=== PATIENT | male | born 1965 | race Caucasian/White ===

== ENCOUNTER 2017-03-31 08:50 | Emergency (ER) | payer OTHER ==
[2017-03-31] MEDS ORDERED: DEXAMETHASONE 10 MG/ML VIAL PO STA (09:27)
[2017-03-31] MEDS ORDERED: DEXAMETHASONE 10 MG/ML VIAL ONE (09:27)
--- NOTE | 2017-03-31 09:29 | ED Physician Documentation ---
PD HPI URI - Stated complaint Stated Complaint: FEVER/COUGH - Chief complaint Chief Complaint: Resp - History obtained from History obtained from: Patient - History of Present Illness Timing - onset: How many weeks ago (4) Timing duration: Weeks (4) Timing details: Gradual onset, Still present Associated symptoms: Ear pain, Nasal congestion, Rhinorrhea, Sore throat, Dry cough, Dyspnea Contributing factors: Sick contact ( sick with similar) Improves by: Rest, Medication Worsened by: Activity Similar symptoms before: Diagnosis (bronchitis) Recently seen: Not recently seen - Additional information Additional information: 51 y/o male with a cough for the past month has developed worsening symptom the past 3 days with coughing paroxysms causing near syncope and pain in the left ear as well as a sore throat. He has some shortness of breath and he finds all of his symptoms are worse at night. Review of Systems Constitutional: denies: Fever Eyes: denies: Decreased vision Ears: reports: Ear pain Nose: reports: Rhinorrhea / runny nose, Congestion Throat: reports: Sore throat Cardiac: denies: Chest pain / pressure, Palpitations Respiratory: reports: Dyspnea, Cough, Wheezing GI: denies: Abdominal Pain, Nausea, Vomiting : denies: Dysuria Skin: denies: Rash PD PAST MEDICAL HISTORY - Present Medications Home Medications: Ambulatory Orders Medication Instructions Recorded Confirmed Albuterol Sulf [Ventolin Hfa 1 - 2 puffs INH Q4HR PRN #1 inhaler 03/31/17 Inhaler] Azithromycin [Zithromax] 250 mg PO DAILY #6 tablet 03/31/17 Benzonatate [Tessalon] 100 - 200 mg PO TID PRN #20 capsule 03/31/17 Lovastatin 03/31/17 Olmesartan Medoxomil [Benicar] 03/31/17 metFORMIN [Glucophage] 03/31/17 - Allergies Allergies/Adverse Reactions: Allergies Allergy/AdvReac Type Severity Reaction Status Date / Time No Known Drug Allergies Allergy Verified 03/31/17 09:03 PD ED PE NORMAL - Vitals Vital signs reviewed: Yes (hypertensive) - HEENT HEENT: Atraumatic, PERRL, EOMI, Other (both TM's are inflamed along the umbo the left is worse than the right. ) - Neck Neck: Supple, no meningeal sign, No bony TTP - Cardiac Cardiac: RRR, No murmur - Respiratory Respiratory: No respiratory distress, Clear bilaterally - Abdomen Abdomen: Soft, Non tender - Back Back: No CVA TTP, No spinal TTP - Derm Derm: Normal color, Warm and dry, No rash - Extremities Extremities: No deformity, No edema - Neuro Neuro: Alert and oriented X 3, No motor deficit, No sensory deficit, Normal speech - Psych Psych: Normal mood, Normal affect Results - Vitals Vitals: Vital Signs - 24 hr 03/31/17 03/31/17 08:52 10:01 Temperature 36.3 C L Heart Rate 88 76 Respiratory 16 18 Rate Blood Pressure 170/105 H 156/103 H O2 Saturation 95 97 Oxygen O2 Source Room air - Labs Labs: Laboratory Tests 03/31/17 09:27 Group A Strep Rapid Negative PD MEDICAL DECISION MAKING - ED course Complexity details: reviewed results, re-evaluated patient, considered differential, d/w patient ED course: 51 y/o male with cough sore throat and ear pain has OM on exam and he does not appear hypoxic. He is given decadron here in the ED and we will prescribe zithromax and albuterol as well. Departure - Departure Disposition: Home, Self Care Clinical Impression: Bronchitis Otitis media Qualifiers: Otitis media type: suppurative Laterality: bilateral Chronicity: acute Recurrence: not specified as recurrent Spontaneous tympanic membrane rupture: without spontaneous rupture Qualified Code(s): H66.003 - Acute suppurative otitis media without spontaneous rupture of ear drum, bilateral Instructions: ED Bronchitis Asthmatic, ED Otitis Media Acute Adult Follow-Up: [facility] [Provider Group] Prescriptions: Albuterol Sulf [Ventolin Hfa Inhaler] 1 - 2 puffs INH Q4HR PRN #1 inhaler PRN Reason: Shortness Of Air/Wheezing Benzonatate [Tessalon] 100 - 200 mg PO TID PRN #20 capsule PRN Reason: Cough Azithromycin [Zithromax] 250 mg PO DAILY #6 tablet Discharge Date/Time: 03/31/17 10:01
[2017-03-31 09:46] LABS: RAPID STREP SCREEN REAGENT QC YELLOW (YELLOW)
[2017-03-31 10:01] VITALS: BP 156/103
== END 2017-03-31 10:01 | disposition home or self-care (01) ==
LOC: ED 08:50
DX: J40 Bronchitis, not specified as acute or chronic (principal); H66.003 Acute suppurative otitis media without spontaneous rupture of ear drum, bilateral
CPT/HCPCS: 87070; 87430; 99283; 99284

== ENCOUNTER 2018-01-14 08:00 | Outpatient (CLI) | payer OTHER ==
[2018-01-14 13:06] LABS: ALBUMIN 4.3 g/dL (3.2-5.5); ALBUMIN/GLOBULIN RATIO 1.3 (1.0-2.2); ALKALINE PHOSPHATASE 76 IU/L (42-121); ALT ALANINE AMINOTRANSFERASE 26 IU/L (10-60); AST ASPARTATE AMINOTRANSFERASE 20 IU/L (10-42); BILIRUBIN,TOTAL 0.8 mg/dL (0.2-1.0); BUN - BLOOD UREA NITROGEN 14 mg/dL (6-20); CALCIUM 9.5 mg/dL (8.5-10.3); CARBON DIOXIDE - CO2 28 mmol/L (21-32); CHLORIDE 100 mmol/L (101-111); CHOL/HDL RATIO 5.8 (<5.0); CHOLESTEROL 203 mg/dL; GFR - MDRD 78 (>89); GLUCOSE 153 mg/dL (70-100); HDL CHOLESTEROL 35 mg/dL; LDL CHOLESTEROL,CALCULATED 135 mg/dL; LDL/HDL RATIO 3.9 (<3.6); SODIUM 134 mmol/L (135-145); TOTAL PROTEIN 7.7 g/dL (6.7-8.2); VLDL CHOLESTEROL 33 mg/dL
[2018-01-14 13:08] LABS: THYROID STIMULATING HORMONE 2.3 uIU/mL (0.34-5.60)
[2018-01-14 13:19] LABS: HB2 TOTAL 19.2 g/dL; HEMOGLOBIN A1C 1.09 g/dL; HEMOGLOBIN A1C % 7.3 % (4.6-6.2)
== END 2018-01-14 08:01 ==
LOC: LAB.WCP 08:00
PROVIDERS: ATTEND Family Medicine
DX: E11.9 Type 2 diabetes mellitus without complications (principal)
CPT/HCPCS: 36415; 80053; 80061; 82607; 83036; 83721; 84443

== ENCOUNTER 2019-09-20 17:04 | Emergency (ER) | payer OTHER ==
[2019-09-20 17:32] LABS: BASOPHILS # (AUTO) 0.1 10^3/uL (0.0-0.1); BASOPHILS % (AUTO) 0.6 %; EOSINOPHILS # (AUTO) 0.1 10^3/uL (0.0-0.7); EOSINOPHILS % (AUTO) 0.8 %; HGB - HEMOGLOBIN 15.6 g/dL (14.0-18.0); LYMPHOCYTES # (AUTO) 1.4 10^3/uL (1.5-3.5); LYMPHOCYTES % (AUTO) 15.7 %; MEAN CORPUSCULAR HEMOGLOBIN 28.1 pg (27.0-31.0); MEAN CORPUSCULAR HGB CONC 33.3 g/dL (32.0-36.0); MEAN CORPUSCULAR VOLUME 84.5 fL (80.0-94.0); MEAN PLATELET VOLUME 9.8 fL (7.4-11.4); MONOCYTES # (AUTO) 0.7 10^3/uL (0.0-1.0); MONOCYTES % (AUTO) 8.2 %; NEUTROPHILS # (AUTO) 6.7 10^3/uL (1.5-6.6); NEUTROPHILS % (AUTO) 74.4 %; PLT - PLATELET COUNT 240 10^3/uL (130-450); RED BLOOD COUNT 5.55 10^6/uL (4.70-6.10); RED CELL DISTRIBUTION WIDTH 13.3 % (12.0-15.0)
[2019-09-20 17:34] LABS: BILIRUBIN,URINE NEGATIVE (NEGATIVE); GLUCOSE, URINE (UA) 500 mg/dL (NEGATIVE); KETONES,URINE (UA) NEGATIVE (NEGATIVE); LEUKOCYTE ESTERASE, URINE NEGATIVE (NEGATIVE); NITRITE,URINE NEGATIVE (NEGATIVE); OCCULT BLOOD,URINE NEGATIVE (NEGATIVE); PH,URINE 6.5 PH (5.0-7.5); PROTEIN,URINE NEGATIVE (NEGATIVE); UROBILINOGEN,URINE 0.2 (NORMAL) E.U./dL (NORMAL)
[2019-09-20] MEDS ORDERED: AMOX/CLAV 875 MG/125 MG TABLET PO STA (17:34)
[2019-09-20 17:35] LABS: CLARITY,URINE CLEAR (CLEAR)
--- NOTE | 2019-09-20 17:37 | ED Physician Documentation ---
PD HPI ABD PAIN - Stated complaint Stated Complaint: AB PX - Chief complaint Chief Complaint: Abd Pain - History obtained from History obtained from: Patient - History of Present Illness Timing - onset: How many days ago (2) Timing - duration: Days (2) Timing - details: Gradual onset Pain level max: 5 Pain level now: 3 Quality: Cramping, Aching Location: LLQ Radiation: No: Chest, , Lower back, Left flank, Left shoulder, Right flank, Right shoulder, Upper back Improved by: Other (rest) Worsened by: Other (movement, palpation) Associated symptoms: No: Fever, Nausea, Vomiting, Hematemesis, Diarrhea, Constipation, Melena, Hematochezia, Dysuria, Hematuria, Chest pain, Dizzy, Near syncope / syncope, Loss of appetite, Weight loss, Testicular pain Similar symptoms before: Diagnosis (Diverticulitis) - Additional information Additional information: 53-year-old male with left lower quadrant abdominal pain for 2 to 3 days. States feels similar to his past history of diverticulitis. No fevers. No vomiting Review of Systems Constitutional: denies: Fever, Chills GI: denies: Vomiting, Diarrhea, Hematemesis, Bloody / black stool Skin: denies: Rash Musculoskeletal: denies: Neck pain, Back pain Neurologic: denies: Headache PD PAST MEDICAL HISTORY - Past Medical History Cardiovascular: Hypertension, High cholesterol Respiratory: None Neuro: Migraines Endocrine/Autoimmune: Type 2 diabetes GI: Diverticulitis : None Psych: None Musculoskeletal: Osteoarthritis Derm: None - Past Surgical History General: Appendectomy - Present Medications Home Medications: Ambulatory Orders Medication Instructions Recorded Confirmed Albuterol Sulf [Ventolin Hfa 1 - 2 puffs INH Q4HR PRN #1 inhaler 03/31/17 Inhaler] Azithromycin [Zithromax] 250 mg PO DAILY #6 tablet 03/31/17 Benzonatate [Tessalon] 100 - 200 mg PO TID PRN #20 capsule 03/31/17 Lovastatin 03/31/17 Olmesartan Medoxomil [Benicar] 03/31/17 metFORMIN [Glucophage] 03/31/17 Amox/Clav 875/125 [Augmentin] 1 each PO Q12H #20 tablet 09/20/19 - Allergies Allergies/Adverse Reactions: Allergies Allergy/AdvReac Type Severity Reaction Status Date / Time No Known Drug Allergies Allergy Verified 09/20/19 17:13 - Social History Does the pt smoke?: No Smoking Status: Former smoker Does the pt drink ETOH?: No Does the pt have substance abuse?: No - Immunizations Immunizations are current?: Yes PD ED PE NORMAL - Vitals Vital signs reviewed: Yes - General General: Alert and oriented X 3, No acute distress, Well developed/nourished - HEENT HEENT: PERRL, Moist mucous membranes - Neck Neck: Supple, no meningeal sign - Cardiac Cardiac: RRR - Respiratory Respiratory: No respiratory distress, Clear bilaterally - Abdomen Abdomen: Soft, Non distended, Other (Tender to palpation left lower quadrant. No peritoneal signs. Otherwise nontender abdomen.) - Back Back: No CVA TTP, No spinal TTP - Derm Derm: Warm and dry - Neuro Neuro: Alert and oriented X 3 - Psych Psych: Normal mood, Normal affect Results - Vitals Vitals: Vital Signs - 24 hr 09/20/19 09/20/19 09/20/19 17:09 17:32 18:12 Temperature 36.6 C 36.9 C 36.8 C Heart Rate 81 79 82 Respiratory 18 16 16 Rate Blood Pressure 182/89 H 178/95 H 170/102 H O2 Saturation 98 97 96 Oxygen O2 Source Room air - Labs Labs: Laboratory Tests 09/20/19 09/20/19 09/20/19 17:16 17:16 17:20 WBC 9.0 RBC 5.55 Hgb 15.6 Hct 46.9 MCV 84.5 MCH 28.1 MCHC 33.3 RDW 13.3 Plt Count 240 MPV 9.8 Neut # (Auto) 6.7 H Lymph # (Auto) 1.4 L [place] # (Auto) 0.7 Eos # (Auto) 0.1 Baso # (Auto) 0.1 Absolute Nucleated RBC 0.00 Nucleated RBC % 0.0 Sodium 136 Potassium 3.4 L Chloride 99 L Carbon Dioxide 29 Anion Gap 8.0 BUN 16 Creatinine 1.1 Estimated GFR (MDRD) 70 L Glucose 179 H Calcium 9.4 Total Bilirubin 0.9 AST 21 ALT 31 Alkaline Phosphatase 79 Total Protein 7.8 Albumin 4.3 Globulin 3.5 Albumin/Globulin Ratio 1.2 Lipase 35 Urine Color YELLOW Urine Clarity CLEAR Urine pH 6.5 Ur Specific [place] 1.015 Urine Protein NEGATIVE Urine Glucose (UA) 500 H Urine Ketones NEGATIVE Urine Occult Blood NEGATIVE Urine Nitrite NEGATIVE Urine Bilirubin NEGATIVE Urine Urobilinogen 0.2 (NORMAL) Ur Leukocyte Esterase NEGATIVE Ur Microscopic Review NOT INDICATED Urine Culture Comments NOT INDICATED PD MEDICAL DECISION MAKING - ED course Complexity details: reviewed results, re-evaluated patient, considered differential, d/w patient ED course: 53-year-old male presents to the emergency department what appears to be diverticulitis. Afebrile. No leukocytosis. No peritoneal signs on exam. We discussed a CT scan. He would like to hold this at this time and we will treat empirically. If he does not improve in 24 to 48 hours as expected, he will return and a CT scan can be performed at that time. No evidence of perforation. No evidence of abscess. Patient counseled regarding signs and symptoms for which I believe and urgent re-evaluation would be necessary. Patient with good understanding of and agreement to plan and is comfortable going home at this time This document was made in part using voice recognition software. While efforts are made to proofread this document, sound alike and grammatical errors may occur. Departure - Departure Disposition: 01 Home, Self Care Clinical Impression: Diverticulitis Condition: Good Instructions: ED Diverticulitis Follow-Up: Amador Erazo DO [Primary Care Provider] - Within 1 week Prescriptions: Amox/Clav 875/125 [Augmentin] 1 each PO Q12H #20 tablet Comments: Take all antibiotics until gone. Return if you worsen. Follow-up with your doctor for repeat evaluation in 1 week. Return if you are not improving in the next 24 to 48 hours, or if you are worsening. We will perform a CT scan at that time. Discharge Date/Time: 09/20/19 18:18
[2019-09-20 17:48] LABS: ALBUMIN 4.3 g/dL (3.2-5.5); ALBUMIN/GLOBULIN RATIO 1.2 (1.0-2.2); BILIRUBIN,TOTAL 0.9 mg/dL (0.2-1.0); CALCIUM 9.4 mg/dL (8.5-10.3); CREATININE 1.1 mg/dL (0.6-1.2); TOTAL PROTEIN 7.8 g/dL (6.7-8.2)
[2019-09-20 18:13] VITALS: BP 170/102
== END 2019-09-20 18:18 | disposition home or self-care (01) ==
LOC: ED 17:04
DX: K57.92 Diverticulitis of intestine, part unspecified, without perforation or abscess without bleeding (principal); I10 Essential (primary) hypertension; E11.9 Type 2 diabetes mellitus without complications; Z79.84 Long term (current) use of oral hypoglycemic drugs; Z87.891 Personal history of nicotine dependence
CPT/HCPCS: 36415; 80053; 81003; 83690; 85025; 99283; 99284; A9270; 81001; 87086

== ENCOUNTER 2019-10-06 09:11 | Outpatient (CLI) | payer OTHER ==
[2019-10-06 12:08] LABS: BASOPHILS % (AUTO) 0.8 %; EOSINOPHILS # (AUTO) 0.1 10^3/uL (0.0-0.7); EOSINOPHILS % (AUTO) 1.6 %; LYMPHOCYTES # (AUTO) 1.3 10^3/uL (1.5-3.5); LYMPHOCYTES % (AUTO) 24.4 %; MEAN CORPUSCULAR HEMOGLOBIN 27.8 pg (27.0-31.0); MEAN CORPUSCULAR HGB CONC 33.5 g/dL (32.0-36.0); MEAN PLATELET VOLUME 10.5 fL (7.4-11.4); MONOCYTES # (AUTO) 0.4 10^3/uL (0.0-1.0); NEUTROPHILS # (AUTO) 3.3 10^3/uL (1.5-6.6); NEUTROPHILS % (AUTO) 64.8 %; PLT - PLATELET COUNT 220 10^3/uL (130-450); RED BLOOD COUNT 5.75 10^6/uL (4.70-6.10); RED CELL DISTRIBUTION WIDTH 13.2 % (12.0-15.0); WHITE BLOOD COUNT 5.1 x10^3/uL (4.8-10.8)
[2019-10-06 12:48] LABS: HB2 TOTAL 16.8 g/dL; HEMOGLOBIN A1C 0.97 g/dL; HEMOGLOBIN A1C % 7.4 % (4.6-6.2)
[2019-10-06 14:59] LABS: ALBUMIN 4.2 g/dL (3.2-5.5); ALBUMIN/GLOBULIN RATIO 1.4 (1.0-2.2); ALKALINE PHOSPHATASE 70 IU/L (42-121); ALT ALANINE AMINOTRANSFERASE 44 IU/L (10-60); AST ASPARTATE AMINOTRANSFERASE 27 IU/L (10-42); BUN - BLOOD UREA NITROGEN 17 mg/dL (6-20); CALCIUM 9.5 mg/dL (8.5-10.3); CARBON DIOXIDE - CO2 28 mmol/L (21-32); CHLORIDE 101 mmol/L (101-111); CHOL/HDL RATIO 5.7 (<5.0); CHOLESTEROL 217 mg/dL; CREATININE 1.1 mg/dL (0.6-1.2); GFR - MDRD 70 (>89); GLUCOSE 138 mg/dL (70-100); HDL CHOLESTEROL 38 mg/dL; LDL CHOLESTEROL,CALCULATED 153 mg/dL; SODIUM 135 mmol/L (135-145); TOTAL PROTEIN 7.3 g/dL (6.7-8.2); VLDL CHOLESTEROL 26 mg/dL
== END 2019-10-06 23:59 | disposition home or self-care (01) ==
LOC: LAB.WCP 09:11
PROVIDERS: ATTEND Family Medicine
DX: E11.9 Type 2 diabetes mellitus without complications (principal); Z12.5 Encounter for screening for malignant neoplasm of prostate
CPT/HCPCS: 36415; 80053; 80061; 83036; 83721; 84153; 85025